=== PATIENT | female | born 1965 | race Caucasian/White ===

== ENCOUNTER 2018-10-27 18:16 | Emergency (ER) | payer MEDICAID ==
--- NOTE | 2018-10-27 19:22 | EDM.PDOC ---
ED HPI GENERAL MEDICAL PROBLEM - General Chief Complaint: Lower Extremity Injury/Pain Stated Complaint: LT KNEE INJURY Time Seen by Provider: 10/27/18 19:21 Source of Information: Reports: Patient History Limitations: Reports: No Limitations - History of Present Illness INITIAL COMMENTS - FREE TEXT/NARRATIVE: PT SLIPPED AND FELL ON HER LEFT KNEE. Duration: Hour(s):, Other ( HURTS WHEN SHE BENDS IT AND TRIES TO WALK ON IT. ) Location: Reports: Lower Extremity, Left Associated Symptoms: Reports: No Other Symptoms - Related Data Allergies Allergy/AdvReac Type Severity Reaction Status Date / Time No Known Allergies Allergy Verified 10/27/18 19:19 Home Meds: Home Meds NK [No Known Home Meds] 10/27/18 [History] Review of Systems - Review of Systems Review Of Systems: See Below Constitutional: Reports: No Symptoms Eyes: Reports: No Symptoms Ears: Reports: No Symptoms Nose: Reports: No Symptoms Mouth/Throat: Reports: No Symptoms Respiratory: Reports: No Symptoms Cardiovascular: Reports: No Symptoms GI/Abdominal: Reports: No Symptoms Genitourinary: Reports: No Symptoms Musculoskeletal: Reports: Other (pain in the left knee) Skin: Reports: No Symptoms ED EXAM, GENERAL - Physical Exam Exam: See Below Free Text/Narrative:: Pt arrived with pain in the left knee. She had slipped and fell on the ice about 5 thirty. Exam Limited By: No Limitations General Appearance: Alert, Mild Distress Extremities: Other ( left knee is swollen and there appears to be fluid in the joint. She is having difficulty straightening the knee and bending it. She does have a past history of a patellar fracture in the past. ) Neurological: Alert, Oriented, Normal Cognition Course - Vital Signs Last Recorded V/S: Last Vital Signs Temp 36.3 C 10/27/18 19:18 Pulse 66 10/27/18 19:18 Resp 16 10/27/18 19:18 BP 134/71 10/27/18 19:18 Pulse Ox 97 10/27/18 19:18 - Re-Assessments/Exams Free Text/Narrative Re-Assessment/Exam: 10/27/18 20:35 pt will be refered to ortho and placed in a knee imoblizer and crutches. Departure - Departure Time of Disposition: 20:28 Disposition: Home, Self-Care 01 Condition: Fair Clinical Impression: Fracture of left patella - Discharge Information Referrals: PCP,None [Primary Care Provider] - Forms: ED Department Discharge Care Plan Goals: knee imoblizer, crutches, ortho robbie--[facility] tylenol and motrin for pain, cool pack to the knee.
--- NOTE | 2018-10-27 20:00 | CRLCR ---
Indication: Fall on left knee, prior patellar fracture. Technique: Left knee 4 views Comparison: None Findings: Bones: Lucency at the lateral patella on the sunrise view. Joint spaces: Tricompartmental osteophytes with joint space narrowing at the patellofemoral compartment and moderate knee effusion. Soft tissues: Unremarkable. Impression: 1. Lucency at the lateral patella on the sunrise view. There is a history of prior patellar fracture although this appearance is more suspicious for a nondisplaced, possibly incomplete acute lateral patellar fracture. 2. Moderate left knee osteoarthritis with moderate left knee effusion. Dictated by Patricio Rosales MD @ Oct 27 2018 7:55PM Signed by Dr. Patricio Rosales @ Oct 27 2018 7:58PM
== END 2018-10-27 20:56 | disposition home or self-care (01) ==
LOC: JP.ED 18:16
DX: S82.002A Unspecified fracture of left patella, initial encounter for closed fracture (principal); W01.0XXA Fall on same level from slipping, tripping and stumbling without subsequent striking against object, initial encounter
CPT/HCPCS: 73564-LT; 99284